=== PATIENT | female | born 1975 ===

== ENCOUNTER 2017-08-08 07:26 | Emergency (ER) | payer OTHER ==
[2017-08-08 07:42] VITALS: BP 142/71
--- NOTE | 2017-08-08 08:28 | UC ---
Throat Pain/Nasal [place] HPI - History of Current Complaint Chief Complaint: UCRespiratory Stated Complaint: SORE THROAT Time Seen by Provider: 08/08/17 08:10 Hx Obtained From: Patient Hx From Patient Unobtainable Due To: Other Hx Last Menstrual Period: iud ?: No Onset/Duration: Sudden Onset, Gradual Onset, Lasting Days Severity: Moderate Associated Signs & Symptoms: Positive: Dysphagia, Fever. Negative: FB Sensation , Drooling, Wheezing, Nasal Discharge - Epiglottits Risk Factors Epiglottis Risk Factors: Negative - Allergies/Home Medications Allergies/Adverse Reactions: Allergies Allergy/AdvReac Type Severity Reaction Status Date / Time Amoxicillin Allergy Severe Hives Verified 08/08/17 07:42 Home Medications: Home Medications Acetaminophen [Tylenol] 08/08/17 [History] Ibuprofen TAB* [Advil TAB*] 08/08/17 [History] PMH/Surg Hx/FS Hx/Imm Hx Previously Healthy: Yes - Surgical History Surgical History: Yes Surgery Procedure, Year, and Place: 2 c sections - Social History Alcohol Use: None Substance Use Type: None Smoking Status (MU): Never Smoked Tobacco Review of Systems Constitutional: Fever, Chills Skin: Negative Eyes: Negative ENT: Sore Throat, Ear Ache Respiratory: Negative Cardiovascular: Negative Gastrointestinal: Negative Genitourinary: Negative Motor: Negative Neurovascular: Negative Musculoskeletal: Negative Neurological: Negative Psychological: Negative All Other Systems Reviewed And Are Negative: Yes Physical Exam Triage Information Reviewed: Yes Appearance: Pain Distress Vital Signs: Initial Vital Signs Temp 36.4 C 08/08/17 07:33 Pulse 76 08/08/17 07:33 Resp 16 08/08/17 07:33 BP 142/71 08/08/17 07:33 Pulse Ox 97 08/08/17 07:33 Vital Signs Reviewed: No Eyes: Positive: Conjunctiva Clear ENT Exam: Other - Right tonsilar erythma and swelling, NO exudates ENT: Positive: Pharyngeal erythema, Other - Right deep ear pain, Neg right external ear canal erythema, moderate cerumen, no periTM erythema visualized. Negative: Nasal congestion, Hoarse voice Neck: Positive: Tenderness @, Enlarged Nodes @ - right cervical LAD 3+ Cardiovascular Exam: Normal Cardiovascular: Positive: RRR Abdominal Exam: Normal Musculoskeletal Exam: Normal Neurological Exam: Normal Psychological Exam: Normal Skin Exam: Normal Throat Pain/Nasal Course/Dx - Differential Dx/Diagnosis Differential Diagnosis/HQI/PQRI: Otitis Media, Pharyngitis Provider Diagnoses: right OM and pharyngitis Discharge - Discharge Plan Condition: Stable Disposition: HOME Prescriptions: Cefuroxime Axetil [Ceftin 500 MG TAB] 500 mg PO BID 7 Days #14 tab Patient Education Materials: Pharyngitis (ED), Otitis Media (ED) Referrals: Brenda Peña MD [Primary Care Provider] - Additional Instructions: as tolerated
== END 2017-08-08 08:48 | disposition home or self-care (01) ==
LOC: UCEAST 07:26
DX: H66.91 Otitis media, unspecified, right ear (principal); J02.9 Acute pharyngitis, unspecified; Z88.1 Allergy status to other antibiotic agents
CPT/HCPCS: 99211; G0463